=== PATIENT | female | born 1995 | race African-American/Black ===

== ENCOUNTER 2025-04-01 12:27 | Emergency (ER) | payer MEDICAID ==
[~2025-04-01] VITALS: Ht 167.6 cm; Wt 105.0 kg
[2025-04-01 12:54] VITALS: O2SAT 100
[2025-04-01] MEDS: DEXAMETHASONE 10 MG/ML VIAL PO NR (13:37)
[2025-04-01] MEDS: DEXAMETHASONE 0.5MG/5ML ORAL SYR PO ONE (13:37)
[2025-04-01] MEDS: KETOROLAC 15MG/ML VIAL IM ONE (13:37)
[2025-04-01] MEDS ORDERED: IBUP-1455 MT (14:37)
[2025-04-01] MEDS ORDERED: PENI500T MT (14:37)
[2025-04-01] MEDS ORDERED: P50 MT (14:37)
[2025-04-01] MEDS ORDERED: GUAI-450 MT (14:37)
[2025-04-01] MEDS ORDERED: BENZ1LOZ73 MM (14:37)
[2025-04-01 14:44] VITALS: BP 125/76; PULSE 80; RESP 16; TEMP 37.6; O2SAT 100
[2025-04-01 15:06] LABS: INFLUENZA TYPE A Presumptive Negative (Pres. Neg.)
[2025-04-01 15:07] LABS: INFLUENZA TYPE B Presumptive Negative (Pres. Neg.)
== END 2025-04-01 14:46 | disposition home or self-care (01) ==
LOC: ER 12:27
DX: J02.9 Acute pharyngitis, unspecified (principal); R05.9 Cough, unspecified; R09.81 Nasal congestion; B97.89 Other viral agents as the cause of diseases classified elsewhere; Z20.822 Contact with and (suspected) exposure to COVID-19
CPT/HCPCS: 99284; 71045; 87426; 81025; 87430; 87070; 87804 ×2; 96372; J1885; J1100; J8540

== ENCOUNTER 2025-04-06 18:17 | Inpatient (IN) | payer MEDICAID ==
[~2025-04-06] VITALS: Ht 167.6 cm; Wt 105.7 kg
[~2025-04-06 18:17] MED LIST: BENZ1LOZ73 MM; GUAI-450 MT; IBUP-1455 MT; P50 MT; PENI500T MT
[2025-04-06 18:24] VITALS: O2SAT 99
[2025-04-06 21:07] LABS: BASOPHILS % 0.5 % (0.0-2.0); EOSINOPHILS % 0.7 % (0.0-5.0); HEMATOCRIT. 37.4 % (36.0-48.0); HEMOGLOBIN. 12.2 g/dL (12.0-16.0); LYMPHOCYTES % 25.4 % (20.0-50.0); MEAN PLATELET VOLUME 7.6 fl (7.4-10.4); MONOCYTES % 8.3 % (2.0-8.0); NEUTROPHILS % 65.1 % (40.0-76.0); PLATELET 299 x1000/uL (130-400); RED BLOOD CELL COUNT 4.13 mill/uL (4.2-5.4); RED CELL DISTRIBUTION WIDTH 14.5 % (11.6-14.6)
[2025-04-06 21:21] LABS: CREATININE 0.9 mg/dL (0.6-1.0); UREA NITROGEN BLOOD 12 mg/dL (9-23)
[2025-04-06 21:36] LABS: HCG SCREEN NEGATIVE
[2025-04-06 21:37] LABS: MONOTEST NEGATIVE (NEGATIVE)
[2025-04-06] MEDS: DEXAMETHASONE 10 MG/ML VIAL IM ONE (21:41)
[2025-04-06] MEDS: KETOROLAC 30MG/ML VIAL IM ONE (21:45)
[2025-04-07] MEDS: SODIUM CHLORIDE 0.9% 1,000 ML IV ONE (01:47)
[2025-04-07] MEDS: ONDANSETRON HCL 4MG/2ML INJ IV ONE (01:55)
[2025-04-07] MEDS: MORPHINE SULFATE 4 MG/ML INJ (FOR IV/IM USE) IV ONE (01:55)
[2025-04-07] MEDS: AMPICILLIN SOD/SULBACTAM NA 3 G in SODIUM CHLORIDE 0.9% 100 ML IV SCH ×2 (02:12→12:15)
[2025-04-07] MEDS: IOHEXOL-300 100 ML BOTTLE ONE (04:34)
[2025-04-07] MEDS ORDERED: ACETAMINOPHEN 325MG TABLET PO PRN (07:15)
[2025-04-07] MEDS ORDERED: LACTULOSE 20G/30ML UDC PO PRN (07:15)
[2025-04-07] MEDS ORDERED: ONDANSETRON HCL 4MG/2ML INJ IV PRN (07:15)
[2025-04-07] MEDS ORDERED: MAGNESIUM/ALUMINUM HYDROXIDE/SIMETHICONE 30ML UDC PO PRN (07:15)
[2025-04-07] MEDS ORDERED: IPRATROPIUM/ALBUTEROL 0.5-3(2.5)MG/3ML NEB NEB PRN (07:15)
[2025-04-07] MEDS ORDERED: HYDRALAZINE 20MG/ML VIAL IV PRN (07:15)
[2025-04-07] MEDS ORDERED: SODIUM CHLORIDE 0.9% 1,000 ML IV SCH (07:15)
[2025-04-07] MEDS: DEXT 5%/0.9% NACL 1,000 ML IV SCH (07:30)
[2025-04-07] MEDS ORDERED: HYDRALAZINE 10 MG in SODIUM CHLORIDE 0.9% 49.5 ML IV PRN (07:45)
[2025-04-07] MEDS ORDERED: NALOXONE HCL 0.4MG/ML VIAL IV PRN (07:45)
[2025-04-07 08:00] VITALS: BP 119/59; PULSE 57; RESP 19; TEMP 36.8; TEMP 36.8072; O2SAT 98
[2025-04-07] MEDS: MORPHINE SULFATE 2 MG/ML INJ (NOT FOR IM USE) IV PRN (08:57)
[2025-04-07] MEDS: PANTOPRAZOLE SODIUM 40 MG/VIAL IV SCH (08:58)
[2025-04-07] MEDS: ENOXAPARIN 30MG/0.3ML SYR SUBCUT SCH (08:59)
[2025-04-07] MEDS: LINEZOLID 600 MG PREMIX 300 ML IV SCH (09:00)
[2025-04-07 12:00] VITALS: BP 125/66; PULSE 60; RESP 18; TEMP 36.7; O2SAT 99
[2025-04-07] MEDS: DEXAMETHASONE 10 MG/ML VIAL IV SCH (12:11)
[2025-04-07 16:00] VITALS: BP 158/87; PULSE 60; RESP 18; TEMP 36.4; O2SAT 97
[2025-04-07] MEDS: KETOROLAC 30MG/ML VIAL IV PRN (17:31)
[2025-04-07 20:00] VITALS: BP 118/60; PULSE 55; RESP 18; TEMP 36.7; O2SAT 95
[2025-04-07] MEDS: LORAZEPAM 0.5MG TABLET PO PRN (21:06)
[2025-04-07] MEDS ORDERED: MELATONIN 3MG TABLET PO SCH (22:45)
[2025-04-08] VITALS: BP 118/69; PULSE 61; RESP 19; TEMP 37.1; O2SAT 96
[2025-04-08] MEDS: DIPHENHYDRAMINE 50MG/ML VIAL IV PRN (01:13)
[2025-04-08] MEDS: MELATONIN 3MG TABLET PO PRN (01:13)
[2025-04-08 04:00] VITALS: BP 115/63; PULSE 64; RESP 19; TEMP 36.7; O2SAT 100
[2025-04-08 08:00] VITALS: BP 119/69; PULSE 59; RESP 19; TEMP 35.6; O2SAT 100
[2025-04-08 12:00] VITALS: BP 118/69; PULSE 62; RESP 18; TEMP 36.7; O2SAT 99
[2025-04-08 16:00] VITALS: BP 118/68; PULSE 59; RESP 18; TEMP 36.4; O2SAT 99
[2025-04-08] MEDS: VANCOMYCIN 2,000 MG in DEXT 5% WATER 500 ML IV SCH (19:05)
[2025-04-08 20:00] VITALS: BP 124/66; PULSE 55; RESP 18; TEMP 36.3; O2SAT 96
[2025-04-09] VITALS: BP 125/68; PULSE 51; RESP 18; TEMP 36.3; O2SAT 98
[2025-04-09 04:00] VITALS: BP 122/68; PULSE 55; RESP 18; TEMP 36.5; O2SAT 98
[2025-04-09 08:00] VITALS: BP 120/65; PULSE 52; RESP 18; TEMP 36.8; O2SAT 98
[2025-04-09] MEDS: VANCOMYCIN 1GM/200ML PMX (BAXTER) IV SCH (09:00)
[2025-04-09 12:00] VITALS: BP 122/68; PULSE 52; RESP 18; TEMP 36.7; O2SAT 99
[2025-04-09 16:00] VITALS: BP 125/62; PULSE 52; RESP 18; TEMP 36.6; O2SAT 100
[2025-04-09 20:00] VITALS: BP 138/80; PULSE 43; RESP 19; TEMP 36.6; O2SAT 100
[2025-04-09 20:01] LABS: PLATELET 313 x1000/uL (130-400); RED BLOOD CELL COUNT 4.26 mill/uL (4.2-5.4); RED CELL DISTRIBUTION WIDTH 14.1 % (11.6-14.6)
[2025-04-09 20:20] LABS: CREATININE 0.8 mg/dL (0.6-1.0); UREA NITROGEN BLOOD 14 mg/dL (9-23)
[2025-04-09 20:21] LABS: PROTEIN TOTAL 6.5 g/dL (6.0-8.3)
[2025-04-09 20:22] LABS: ASPARTATE AMINOTRANSFERASE 13 IU/L (<34); BILIRUBIN DIRECT < 0.1 mg/dL (<=3.0); BILIRUBIN TOTAL 0.2 mg/dL (0.1-1.0)
[2025-04-10] VITALS: BP 127/68; PULSE 47; RESP 19; TEMP 36.6; O2SAT 97
[2025-04-10] MEDS: HYDROCODONE/ACETAMINOPHEN 7.5/325MG TABLET PO PRN (02:14)
[2025-04-10 04:00] VITALS: BP 108/45; PULSE 50; RESP 18; TEMP 36.7; O2SAT 100
[2025-04-10 08:00] VITALS: BP 153/80; PULSE 47; RESP 19; TEMP 37; O2SAT 95
[2025-04-10 08:23] LABS: CREATININE 0.8 mg/dL (0.6-1.0); UREA NITROGEN BLOOD 10 mg/dL (9-23)
[2025-04-10] MEDS: VANCOMYCIN 1.25GM/250ML IV SCH (10:00)
[2025-04-10 12:00] VITALS: BP 125/66; PULSE 48; RESP 19; TEMP 36.9; O2SAT 97
[2025-04-10 16:00] VITALS: BP 102/63; PULSE 60; RESP 19; TEMP 36.6; O2SAT 98
[2025-04-10 20:00] VITALS: BP 106/53; PULSE 50; RESP 18; TEMP 36.4; O2SAT 97
[2025-04-11] VITALS: BP 125/66; PULSE 55; RESP 18; TEMP 36.4; O2SAT 98
[2025-04-11 04:00] VITALS: BP 108/56; PULSE 49; RESP 18; TEMP 36.8; O2SAT 98
[2025-04-11] MEDS: ACETAMINOPHEN 325MG TABLET PO PRN (05:45)
[2025-04-11 08:00] VITALS: BP 119/84; PULSE 52; RESP 18; TEMP 36.5; O2SAT 99
[2025-04-11 11:41] LABS: CREATININE 0.8 mg/dL (0.6-1.0); PLATELET 348 x1000/uL (130-400); RED BLOOD CELL COUNT 4.62 mill/uL (4.2-5.4); RED CELL DISTRIBUTION WIDTH 13.7 % (11.6-14.6); UREA NITROGEN BLOOD 10 mg/dL (9-23)
[2025-04-11 16:00] VITALS: BP 122/67; PULSE 47; RESP 18; TEMP 36.7; O2SAT 98
[2025-04-11 20:00] VITALS: BP 121/52; PULSE 51; RESP 20; TEMP 36.4; O2SAT 98
[2025-04-12] VITALS: BP 125/55; PULSE 50; RESP 20; TEMP 36.6; O2SAT 97
[2025-04-12 04:00] VITALS: BP 107/52; PULSE 50; RESP 20; TEMP 36.4; O2SAT 99
[2025-04-12 08:00] VITALS: BP 119/64; PULSE 54; RESP 18; TEMP 36.6; O2SAT 97
[2025-04-12] MEDS: FAMOTIDINE 20MG/2ML VIAL IV SCH (08:31)
== END 2025-04-12 11:05 | disposition left against medical advice (07) | DRG 113 ==
LOC: ER 18:17 → EDBEDREQTM 04-07 01:57 → EDBEDREQ 04-07 01:57 → ENRESERV 04-07 04:58 → 4WST 04-07 05:04 → UNDODISIN 04-07 18:44
PROVIDERS: ADMIT Internal Medicine; ATTEND Internal Medicine
DX: J39.0 Retropharyngeal and parapharyngeal abscess (principal); E66.9 Obesity, unspecified; Z53.29 Procedure and treatment not carried out because of patient's decision for other reasons; Z68.37 Body mass index [BMI] 37.0-37.9, adult
CPT/HCPCS: 36415; 70491; 80048; 80076; 80202; 84703; 85025; 85027; 86308; 93005; 99285; J0295; J1100; J1200; J1308; J1650; J1885; J2020; J2270; J2405; J2470; J3373; J7030; J7042; J7050; J7060; Q9967